=== PATIENT | female | born 1955 | race African-American/Black ===

== ENCOUNTER 2018-09-03 05:50 | Inpatient (IN) | payer SELFPAY ==
[2018-09-03] MEDS ORDERED: Morphine 4 MG/ML VIAL ONE (06:27)
[2018-09-03] MEDS ORDERED: cloNIDine 0.1 MG TAB ONE (06:27)
[2018-09-03] MEDS ORDERED: Ondansetron PF 4 MG/2 ML Vial ONE (06:27)
[2018-09-03 06:46] LABS: Hemoglobin 14.4 g/dL (12.0-16.0); Mean Corpuscular Hemoglobin 29.6 pg (27.0-31.0); Mean Corpuscular Volume 95.6 fL (78.0-98.0); Mean Platelet Volume 10.9 fL (7.4-10.4); Platelet Count 275 thou/uL (130-400); RBC Distribution Width 12.5 % (11.5-14.5); Red Blood Cell (RBC) Count 4.85 mill/uL (4.20-5.40); White Blood Cell (WBC) Count 14.3 thou/uL (4.8-10.8)
[2018-09-03 06:58] LABS: ALT (SGPT) 10 U/L (8-55); AST (SGOT) 19 U/L (5-34); Albumin 4.7 g/dL (3.4-4.8); Alkaline Phosphatase 103 U/L (40-150); Anion Gap 21 mmol/L (10-20); BUN (Urea Nitrogen) 28 mg/dL (9.8-20.1); Bilirubin, Total 0.3 mg/dL (0.2-1.2); Calc. Creatinine Clearance 0 mL/min (70-130); Calcium 10.1 mg/dL (7.8-10.44); Carbon Dioxide 20 mmol/L (23-31); Chloride 101 mmol/L (98-107); Estimated GFR-MDRD 33; Globulin 5.1 g/dL (2.4-3.5); Glucose 291 mg/dL (80-115); Lipase 42 U/L (8-78); Potassium 4.3 mmol/L (3.5-5.1); Protein, Total 9.8 g/dL (6.0-8.3); Sodium 138 mmol/L (136-145)
[2018-09-03 07:09] LABS: Band 3 % (5-11); Lymphocytes 13 % (21-51); MDiff Complete? YES; Monocytes 3 % (0-10); Neutrophil 81 % (42-75); RBC Morphology Normal
[2018-09-03] MEDS ORDERED: Aspirin 325 MG TAB ONE (07:22)
[2018-09-03 07:24] LABS: CKMB 5.6 ng/mL (0-6.6)
[2018-09-03] MEDS ORDERED: Nitroglycerin 0.4 MG TAB (25 Tab Bottle) ONE (09:13)
[2018-09-03] MEDS ORDERED: Metoprolol Tartrate 5 MG/5 ML VIAL ONE (09:18)
--- NOTE | 2018-09-03 09:39 | ULT ---
RIGHT UPPER QUADRANT ULTRASOUND: HISTORY: Right upper quadrant pain and mid epigastric pain. Nausea and vomiting. FINDINGS: The liver and gallbladder are normal. The pancreas is not well visualized due to overlying bowel gas . The right kidney measures 9 cm in length without definite focal mass or hydronephrosis. No free f luid is seen in the Love pouch. The common duct measures 5 mm in diameter. IMPRESSION: No evidence of cholelithiasis. POS: [facility]
--- NOTE | 2018-09-03 09:44 | RAD ---
PORTABLE CHEST ONE VIEW: 09/03/2018 6:23 a.m. HISTORY: Nausea and vomiting. High blood sugar. FINDINGS: The heart size is normal. The lungs are well expanded without focal areas of consolidation, pneumoth orax, or pleural effusions. IMPRESSION: No acute process. POS: [facility]
[2018-09-03] MEDS ORDERED: Nitroglycerin 50 MG/250 ML BOT 250 ML ONE (09:51)
[2018-09-03] MEDS ORDERED: Heparin 25,000 units/D5W 500 ML ONE (09:51)
[2018-09-03 10:04] LABS: Troponin I 0.963 ng/mL (< 0.028)
[2018-09-03] MEDS ORDERED: Nitroglycerin 50 MG/250 ML BOT 250 ML IVPB SCH (10:15)
--- NOTE | 2018-09-03 10:53 | CT ---
PRELIMINARY REPORT/[facility]/EMERGENTY AFTER-HOURS PROCEDURE CT Head Without Contrast EXAM DATE/TIME: 09/03/2018 6:45 AM CLINICAL HISTORY: 62 years old, female; Signs and symptoms; Dizziness; Patient HX: F 62 presents to ed with epigastirc abd pain, vomiting and HTN. PT states that she took her night BP medication but immediately vomited. Symptoms began at 20: 00 yesterday. Reports 3 episodes of vomiting and mild SOB, denies cp, fever, VILLAREAL or diarrhea. TECHNIQUE: Axial computed tomography images of the head/brain without contrast. COMPARISON: No relevant prior studies available. FINDINGS: Brain: There is no acute intracranial hemorrhage or mass effect. Mild diffuse volume loss is within t he range of normal for patient age. There are small vessel ischemic changes within the periventricula r and subcortical white matter, but the normal angela/white matter delineation is maintained. There is a chronic lacunar infarct within the right basal ganglia. Ventricles: Normal. No ventriculomegaly. Bones/joints: Normal. No acute fracture. Sinuses: Normal as visualized. No acute sinusitis. Mastoid air cells: Normal as visualized. No mastoid effusion. Soft tissues: Normal. IMPRESSION: No acute hemorrhage or edema. Thank you for allowing us to participate in the care of your patient. Dictated and Authenticated by: Lori Campbell MD 09/03/2018 7:38 AM Central Time ([place] & [place]) FINAL REPORT CT BRAIN WITHOUT CONTRAST: Date: 09/03/18 FINDINGS/IMPRESSION: I agree with the preliminary report given by Jose. POS: [facility]
[2018-09-03] MEDS ORDERED: Dextrose 50% Abboject 50 ML SYRINGE SLOW IVP PRN (11:12)
[2018-09-03] MEDS ORDERED: Dextrose 5% in Water 1,000 ML IV PRN (11:12)
[2018-09-03] MEDS ORDERED: Sodium Chloride 0.45% 1,000 ML IV SCH (11:15)
[2018-09-03] MEDS ORDERED: niCARdipine 40MG In NaCl 40 MG/200 ML BAG IVPB SCH (11:15)
[2018-09-03 11:28] VITALS: BMI 32.4
[2018-09-03] MEDS ORDERED: Heparin 10,000 UNITS/ 10 ML VIAL SLOW IVP SCH ×2 (12:15→12:45)
[2018-09-03] MEDS ORDERED: Heparin 25,000 units/D5W 500 ML IV SCH (12:15)
[2018-09-03] MEDS ORDERED: Heparin 25,000 units/D5W 500 ML IVPB SCH (12:45)
[2018-09-03 13:01] LABS: Troponin I 1.237 ng/mL (< 0.028)
--- NOTE | 2018-09-03 13:38 | CON ---
DATE OF CONSULTATION: HISTORY OF PRESENT ILLNESS: A 62-year-old female, who is 96 kilos, presented to the hospital with off and on left anterior chest pain since yesterday. Her saturations are 97% on room air, respirations 20, blood pressure was 120/80. She smokes one-half pack a day for years. Has a diagnosis of COPD. Mostly, she is able to walk a fair distance without getting markedly short of breath. She then proceeded to apparently have some vomiting. Came to the ER, where a troponin was elevated. EKG shows some lateral changes in the ICU, now on IV nitroglycerin drip. Cardiology to see her. Pulmonary is seeing her for ICU care. On most days, she says she can walk a mile without getting short of breath. PAST MEDICAL HISTORY: COPD, hypertension, diabetes. PAST SURGICAL HISTORY: Hysterectomy and ligation. HOME MEDICINES: Include: 1. Metformin 1000 twice a day. 2. Catapres 0.1. 3. Procardia XL 60. 4. Losartan 100. 5. Pepcid 20. 6. Coreg 6.25 twice a day. 7. Aspirin. ALLERGIES: NONE. 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 REVIEW OF SYSTEMS: Otherwise unremarkable. PHYSICAL EXAMINATION: GENERAL: She is in the ICU, awake, alert, and responsive. VITAL SIGNS: 2 L saturations are 94%, temperature 98, blood pressure was now elevated showed right was 219/148. She is started on nitro and a Cardene drip. CHEST: Reveals decreased breath sounds and wheezing. CARDIAC: Normal S1, S2. No gallops. ABDOMEN: Soft. No masses. LABORATORY DATA: Shows white count 14,000, H and H of 14 and 46, platelet count is normal, neutrophil 81. Glucose 238. Troponin 0.96. Glucose 291, creatinine 1.86. IMPRESSION: 1. Ssx-HV-bdcphuy elevation myocardial infarction. 2. Renal failure. 3. Diabetes. 4. Smoker. 5. Hypertension. PLAN: The patient is advised to refrain from smoking. Heparin, nicardipine, and insulin are initiated by Cardiology. Primary Care will follow while in the ICU. Consultation note, 70 minutes, 50% with direct patient care. Job ID: [id number]
[2018-09-03] MEDS ORDERED: Communication Order-Pharmacy FS SCH (13:45)
[2018-09-03] MEDS: Sodium Chloride 0.9% 1,000 ML IV SCH (14:43)
[2018-09-03 15:28] LABS: PTT Greater than 250.0 SEC (22.9-36.1)
[2018-09-03] MEDS: Insulin Regular 300 UNITS/3 ML VIAL SC PRN ×2 (15:49→21:32)
[2018-09-03] MEDS: Carvedilol 6.25 MG TAB PO SCH (15:49)
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
[2018-09-03] MEDS: niCARdipine HCl 25 MG in Sodium Chloride 0.9% 250 ML 240 ML IVPB SCH (17:49)
[2018-09-03 18:12] LABS: PTT 123.7 SEC (22.9-36.1)
[2018-09-03] MEDS ORDERED: Atorvastatin Calcium 40 MG TAB PO SCH (21:00)
[2018-09-04] MEDS: Acetaminophen 325 MG TAB PO PRN ×2 (02:32→20:50)
[2018-09-04 05:32] LABS: Anion Gap 11 mmol/L (10-20); BUN (Urea Nitrogen) 27 mg/dL (9.8-20.1); Calc. Creatinine Clearance 52 mL/min (70-130); Calcium 8.5 mg/dL (7.8-10.44); Carbon Dioxide 25 mmol/L (23-31); Cardiac Risk 2.9 (Less than 4.5); Chloride 104 mmol/L (98-107); Cholesterol 88 mg/dl (< 200 Desired); Estimated GFR-MDRD 43; Glucose 141 mg/dL (80-115); HDL Cholesterol 30 mg/dL (>60 Neg Risk); LDL Cholesterol, Calculated 39 mg/dL; Potassium 3.6 mmol/L (3.5-5.1); Sodium 136 mmol/L (136-145); Triglycerides 96 mg/dL (Less than 150)
[2018-09-04] MEDS: niCARdipine HCl 25 MG in Sodium Chloride 0.9% 250 ML 240 ML IVPB SCH ×4 (06:10→19:25)
[2018-09-04 08:36] LABS: Troponin I 1.115 ng/mL (< 0.028)
[2018-09-04] MEDS: Carvedilol 6.25 MG TAB PO SCH ×2 (08:43→19:32)
[2018-09-04] MEDS: Sodium Chloride 0.9% 1,000 ML IV SCH (08:45)
[2018-09-04] MEDS ORDERED: Losartan 25 MG TAB PO SCH (09:00)
--- NOTE | 2018-09-04 09:53 | PRG ---
DATE OF SERVICE: 09/04/2018 SUBJECTIVE: This morning, she is awake, alert, and responsive. She has been feeling better. Less pain, less shortness of breath. Echo showed an EF of about 35% to 40%. OBJECTIVE: VITAL SIGNS: Her vital signs are stable with oxygen saturation of 97%. Blood pressure 129/98, temperature 98, respirations 20, and pulse 80. CHEST: Decreased breath sounds. No wheezing. CARDIAC: Normal S1 and S2. No gallops. ABDOMEN: Soft. LABORATORY DATA: Creatinine 1.49. IMPRESSION: Xgv-ZZ-ftronmp elevation myocardial infarction, renal failure. PLAN: Continue to observe in the ICU. Pulmonary will follow while in the ICU. Job ID: [id number]
[2018-09-04] MEDS ORDERED: Potassium Chloride 20 MEQ TAB PO SCH (10:30)
[2018-09-04] MEDS ORDERED: Furosemide 20 MG/2 ML VIAL SLOW IVP SCH (10:30)
[2018-09-04] MEDS: Insulin Regular 300 UNITS/3 ML VIAL SC PRN (10:56)
--- NOTE | 2018-09-04 11:17 | HP ---
HISTORY OF PRESENT ILLNESS: Ms. Rangel is a 62-year-old black woman. She came to this facility earlier today with complaint of nausea and vomiting, which started around 2100 hours last night and she has been unable to take her medication. She was evaluated in the ER. She was noticed to have elevated troponin and also to have elevated blood pressure. She is being admitted for evaluation and management. She is known to have a history of hypertension and diabetes mellitus. She denies previous history of heart disease. She denies kidney disease. She does have a history of COPD. No history of cerebrovascular accident. PAST SURGICAL HISTORY: Remarkable for tubal ligation and later, hysterectomy. ALLERGIES: SHE CLAIMS TO HAVE ALLERGY TO CODEINE. SOCIAL HISTORY: She is an active smoker. She denies EtOH abuse. She denies drug abuse. FAMILY HISTORY: Reviewed and is noncontributory. MEDICATIONS: Prior to admission, she was on; 1. Aspirin 81 mg daily. 2. Carvedilol. 3. Clonidine. 4. Losartan. 5. Lovastatin. 6. Metformin. 7. Nifedipine. 8. Toujeo. REVIEW OF SYSTEMS: CONSTITUTIONAL: She denies any fever. Admit to generalized weakness. HEENT: No headache. No occular pain. No sore throat. . No earache. No epistaxis. NECK: No neck pain. No neck stiffness. CARDIOVASCULAR: No shortness of breath. She claims that she had some chest pain earlier while in the ER. GENITOURINARY: No dysuria. No hematuria. GASTROINTESTINAL: Admit to nausea, vomiting. She denies diarrhea. Denies abdominal pain. ENDOCRINOLOGY: No heat or cold intolerance. She admit to polyuria and polydipsia. PULMONOLOGY: Denies coughing. MUSCULOSKELETAL: No arthralgia. No muscle pain. HEMATOLOGY: No abnormal bleeding. No ecchymosis. LYMPHATIC: No peripheral lymphadenopathy. SKIN: No rash. No itching. ALLERGY: No hay fever. NEUROLOGICAL: No seizure. PSYCHIATRIC: She denies anxiety. Denies depression. PHYSICAL EXAMINATION: GENERAL: At the current time, she is alert, oriented, in no acute distress. VITAL SIGNS: Her latest vital signs show a temperature of 97.6, pulse rate 93, respiratory rate 22, and blood pressure 192/137. HEENT: Her head is normocephalic and atraumatic. Both of her pupils are equal and reactive. Ears and nose are normal. Oral mucosa is moist. Pharyngeal area is clear. NECK: Supple. There is no distention of the jugular vein. No lymphadenopathy felt. Thyroid not palpable. There is no carotid bruit. CHEST: Symmetrical, irregular. S1 and S2. LUNGS: Clear. ABDOMEN: Soft. Bowel sounds heard. Could not appreciate any organomegaly. LYMPHS: Show no edema. NEUROLOGICAL: She moves all extremities. LABORATORY DATA: CBC show a WBC of 14.3, hemoglobin of 14.4, hematocrit of 46.4, MCV of 95.6, and platelet 275. Chemistry and lytes done today show a sodium of 138, potassium 4.3, chloride 101, CO2 of 20, BUN 28, creatinine 1.87, glucose 291, and calcium 10.1. Total bilirubin 0.3, AST 19, ALT 10, and alkaline phosphatase 103. Troponins were noticed to be elevated at 0.394, repeat troponins is 0.963. Total protein is 9.8. Albumin 4.7, globulin 5.1. Lipase 42. IMAGING DATA: Right upper quadrant ultrasound was reported to show no evidence of cholelithiasis. Chest x-ray was reported to show no acute process. Head CT is in progress. ASSESSMENT AND PLAN: This is a 62-year-old black woman with history of hypertension, diabetes mellitus, and chronic obstructive pulmonary disease, who came in with complaint of nausea and vomiting, noticed to have elevated blood pressure, value is consistent with hypertensive emergency. We will start her on the Cardene drip. She will be admitted to ICU. Her serum creatinine was noticed to be elevated raising the possibility of acute kidney injury in the setting of dehydration associated with nausea and vomiting. Her blood sugar is also elevated. She will be on the sliding scale until we start her diabetic medication. She will be admitted to ICU as we mentioned earlier. Further evaluation and management will depend on her course of the hospitalization and her response to medication. Her troponin has increased significantly, consistent with non-ST myocardial infarction. EKG shows nonspecific abnormalities. Cardiology consult was called. Also, she has history of chronic obstructive pulmonary disease. Job ID: [id number]
--- NOTE | 2018-09-04 11:27 | PDOC.PN ---
- Subjective Encounter Start Date: 09/04/18 Encounter Start Time: 11:00 -: No complaint now. -: Some chest pain earlier. - Objective Vital Signs & Weight: Vital Signs (12 hours) Temp BP Pulse Ox 09/04/18 08:43 129/98 H 09/04/18 08:00 98.7 F 09/04/18 06:42 94 L 09/04/18 01:11 97 Weight Weight 189 lb 2.506 oz Most Recent Monitor Data Heart Rate from ECG 102 NIBP 129/98 NIBP BP-Mean 108 Respiration from ECG 21 SpO2 97 I&O: 09/03/18 09/04/18 09/05/18 06:59 06:59 06:59 Intake Total 2124.2 Output Total 1060 120 Balance 1064.2 -120 Result Diagrams: 09/03/18 06:22 09/04/18 05:01 Additional Labs: Accuchecks 09/04/18 09/03/18 09/03/18 10:52 21:26 15:46 POC Glucose 172 H 244 H 266 H Phys Exam - Physical Examination Neck: no JVD Respiratory: clear to auscultation bilateral Cardiovascular: RRR Gastrointestinal: soft Musculoskeletal: no edema Neurological: moves all 4 limbs Psychiatric: A&O x 3 Dx/Plan (1) NSTEMI (non-ST elevated myocardial infarction) Code(s): I21.4 - NON-ST ELEVATION (NSTEMI) MYOCARDIAL INFARCTION Status: Acute Plan: Per cardiology.. For possible cardiac cath later. (2) HTN (hypertension) Code(s): I10 - ESSENTIAL (PRIMARY) HYPERTENSION Status: Acute (3) Diabetes Code(s): E11.9 - TYPE 2 DIABETES MELLITUS WITHOUT COMPLICATIONS Status: Acute Plan: On sliding scale.. (4) Hypertensive emergency Code(s): I16.1 - HYPERTENSIVE EMERGENCY Status: Acute Comment: controlled (5) Hypertensive emergency Code(s): I16.1 - HYPERTENSIVE EMERGENCY Status: Acute (6) Renal insufficiency Status: Acute (7) Renal insufficiency Status: Acute Comment: Consult nephrology.. - Plan * .
[2018-09-04] MEDS: Atorvastatin Calcium 20 MG TAB PO SCH (20:50)
--- NOTE | 2018-09-04 20:51 | CON ---
DATE OF CONSULTATION: NEPHROLOGY CONSULTATION REASON FOR CONSULTATION: Elevated creatinine. HISTORY OF PRESENT ILLNESS: This is a 62-year-old female, who was admitted for uncontrolled hypertension, was noted to have creatinine of 1.4. The patient denies no headache, numbness, tingling, or weakness. The patient was also noted to have better blood pressure. The patient's creatinine was 1.8 and has improved, her baseline was 1.0 in 2015. PAST MEDICAL HISTORY: Significant for hypertension, history of obesity, history of COPD, tubal ligation, and history of diabetes mellitus. SOCIAL HISTORY: No alcohol or drug use. FAMILY HISTORY: Negative for ESRD. ALLERGIES: REVIEWED. MEDICATIONS: Home medication list reviewed. REVIEW OF SYSTEMS: A 15-point review of system was performed and was negative except for positives noted above. NECK: No swelling or lumps. NOSE: No epistaxis or discharge. EYES: No diplopia or pain. MUSCULOSKELETAL: No joint pain. NEUROPSYCHIATRIC SYSTEMS: No suicidal ideation. No ideation. SKIN: Denies any rash or ulcer. CONSTITUTIONAL: No fever or chills. PHYSICAL EXAMINATION: CONSTITUTIONAL: The patient is awake and alert. VITAL SIGNS: Afebrile, pulse 92, breathing is 16, and blood pressure 146/97. GENERAL APPEARANCE AND MENTAL STATUS: Fair. HEAD/NECK: Normocephalic. Atraumatic. EYES: EOMI. No deformity. EARS: Clear. No ulcers. NOSE: Intact. No lesions. MOUTH: Clear. No discharge. THROAT: Clear. No exudate. LUNGS: Clear. No crackles. CARDIAC: S1, S2. No rub. ABDOMEN: Benign. Bowel sounds positive. GENITALIA/RECTUM: Wilkinson absent. BACK/EXTREMITIES: Edema 0+. NEUROLOGICAL: Alert and motor intact. LABORATORY DATA: Labs show creatinine 1.4. ASSESSMENT AND PLAN: 1. Chronic kidney disease, most likely due to hypertensive nephropathy. Agree with cardiac catheterization and continue gentle IV hydration. 2. Medications based on glomerular filtration rate are appropriate. 3. Anemia, stable. Job ID: [id number]
--- NOTE | 2018-09-04 21:40 | ULT ---
RENAL ULTRASOUND: HISTORY: Chronic renal insufficiency. TECHNIQUE: Real-time imaging of the right and left kidneys was performed. FINDINGS: The right kidney measures 9.5 cm in size. The left kidney is 9.8 cm. There are some hypodensities i nvolving the left kidney, one measuring 6 mm, the larger measuring 2.3 cm in size, and a third measu ring 1.8 cm. There is also a questionable nonobstructing upper pole calculus. The bladder region appears unremarkable. IMPRESSION: Left renal cysts and a questionable nonobstructing stone. POS: [facility]
[2018-09-04] MEDS ORDERED: diphenhydrAMINE 25 MG CAP PO SCH (22:30)
[2018-09-05] MEDS: niCARdipine HCl 25 MG in Sodium Chloride 0.9% 250 ML 240 ML IVPB SCH ×2 (01:46→07:00)
[2018-09-05] MEDS: Carvedilol 6.25 MG TAB PO SCH (05:13)
[2018-09-05] MEDS: Acetaminophen 325 MG TAB PO PRN (05:14)
[2018-09-05] MEDS ORDERED: Sodium Chloride 0.9% 1,000 ML IV SCH ×2 (06:00→11:13)
[2018-09-05] MEDS ORDERED: Protamine Sulfate 50 MG/5 ML VIAL ONE (08:24)
[2018-09-05] MEDS ORDERED: Heparin 10,000 UNITS/1 ML VIAL ONE (08:24)
[2018-09-05] MEDS ORDERED: Lidocaine 1% (PF) 30 ML VIAL ONE (08:24)
[2018-09-05] MEDS ORDERED: Fentanyl 100 MCG/2 ML VIAL ONE (09:43)
[2018-09-05] MEDS ORDERED: Midazolam HCl 2 mg/2 ml Vial ONE (09:43)
--- NOTE | 2018-09-05 09:45 | PRG ---
DATE OF SERVICE: 09/05/2018 SERVICE: Pulmonary Medicine. INTERVAL HISTORY: The patient is doing fine from a respiratory standpoint. Breathing comfortably. There has been no interval change to her condition. Denies any current fevers, chills, nausea, vomiting, or chest discomfort. She is not having any abdominal discomfort or epigastric discomfort. PHYSICAL EXAMINATION: VITAL SIGNS: Afebrile, pulse 95, blood pressure 128/111, respirations 13, and saturation 96% on room air. GENERAL: The patient is awake and alert, in no apparent distress. LUNGS: Decent air entry. There is a slightly prolonged expiratory phase, but I do not appreciate any adventitious sounds. HEART: Normal rate, regular. ABDOMEN: Soft, nontender, and nondistended. Bowel sounds are positive. MUSCULOSKELETAL: No cyanosis or clubbing. No pitting in bilateral lower extremities. NEUROLOGIC: Grossly nonfocal. LABORATORY DATA: Basic metabolic profile is unremarkable. Creatinine is downtrending to 1.49, which is close to her baseline. Troponin is uptrending to 1.2. Beta-hydroxybutyric acid was previously 0.93. IMAGING: Ultrasound does not demonstrate any significant obstructive changes. Echocardiogram demonstrates 35% ejection fraction and dyskinetic motion of the apical wall. ASSESSMENT: 1. Gdn-IK-zyuskixlj myocardial infarction. 2. Type 2 diabetes mellitus. 3. Hypertensive emergency, still requiring two drips. DISCUSSION AND PLAN: The patient is going down for cardiac catheterization presently. She will remain in the ICU until cleared for transition to the floor by Cardiology. We will work on getting her off her antihypertensive medications by drip and convert her over to p.o. medications. Pulmonary/Critical Care will continue to follow so long as the patient remains in this location. When she arrives on the floor, she will have no further requirements for inpatient Pulmonary/Critical Care opinion, and we will sign off. Job ID: [id number]
[2018-09-05] MEDS ORDERED: Clopidogrel Bisulfate 300 MG TAB ONE (10:37)
[2018-09-05] MEDS ORDERED: Bivalirudin 250 MG VIAL ONE (10:37)
[2018-09-05] MEDS ORDERED: Nitroglycerin 0.4 MG TAB (25 Tab Bottle) SL PRN (11:12)
[2018-09-05] MEDS ORDERED: Carvedilol 6.25 MG TAB PO SCH (11:15)
[2018-09-05] MEDS ORDERED: niCARdipine HCl 25 MG in Sodium Chloride 0.9% 250 ML 240 ML IVPB SCH (11:32)
[2018-09-05] MEDS ORDERED: Nitroglycerin 50 MG/250 ML BOT 250 ML IVPB SCH (11:38)
[2018-09-05] MEDS ORDERED: Morphine 2 MG/ML SYRINGE SLOW IVP PRN (11:51)
[2018-09-05] MEDS ORDERED: hydrALAZINE 25 MG TAB PO SCH (12:15)
--- NOTE | 2018-09-05 12:41 | PRG ---
DATE OF SERVICE: 09/05/2018 SUBJECTIVE: This 62-year-old female being seen for acute kidney injury. The patient denies any nausea, vomiting, or chest pain. OBJECTIVE: CONSTITUTIONAL: The patient is awake and alert. VITAL SIGNS: Afebrile, pulse 97, breathing 16, and blood pressure 166/103. GENERAL APPEARANCE AND MENTAL STATUS: Fair. HEAD/NECK: Normocephalic. Atraumatic. EYES: EOMI. No deformity. EARS: Clear. No ulcers. NOSE: Intact. No lesions. MOUTH: Clear. No discharge. THROAT: Clear. No exudate. LUNGS: Clear. No crackles. CARDIAC: S1, S2. No rub. ABDOMEN: Benign. Bowel sounds positive. GENITALIA/RECTUM: Wilkinson absent. BACK/EXTREMITIES: Edema 0+. NEUROLOGICAL: Alert and motor intact. LABORATORY DATA: None today. ASSESSMENT: 1. Stage 3 chronic kidney disease. Check hemoglobin. 2. Hypertension, stable. 3. Anemia, stable. 4. Coronary artery disease. Management per primary team. Job ID: [id number]
[2018-09-05 12:54] LABS: Anion Gap 15 mmol/L (10-20); BUN (Urea Nitrogen) 16 mg/dL (9.8-20.1); Calc. Creatinine Clearance 61 mL/min (70-130); Calcium 8.4 mg/dL (7.8-10.44); Carbon Dioxide 18 mmol/L (23-31); Chloride 107 mmol/L (98-107); Estimated GFR-MDRD 51; Glucose 158 mg/dL (80-115); Potassium 3.6 mmol/L (3.5-5.1); Sodium 136 mmol/L (136-145)
[2018-09-05] MEDS ORDERED: Iopamidol 370 76% 50 ML VIAL FS ONE (14:31)
[2018-09-05] MEDS ORDERED: Iopamidol 370 76% 100 ML VIAL ONE (14:31)
--- NOTE | 2018-09-05 15:47 | CCL ---
CARDIAC CATHETERIZATION REPORT: Date: 09/05/18 PROCEDURE: Left heart catheterization, selective arteriography, left ventriculography, stent placement in the fi rst diagonal branch and in the mid LAD. INDICATION: Non-STEMI. DESCRIPTION OF PROCEDURE: The patient was brought to the cardiac laborer demolition and the right groin was prepped and draped in the usu al fashion. 1% lidocaine was infiltrated. A 6 Qatari sheath was placed into the right femoral artery. The patient was on intravenous heparin. A 6 Qatari Waldo left-4 followed by a 6 Qatari Waldo rig ht-4 was used for coronary arteriography. A 6 Qatari angulated pigtail was inserted and pressures wer e obtained. Left ventriculogram was performed using 30 mL of contrast at 12 mL/s in a TAVERA 30 degree p rojection. Pressures were obtained and the pigtail was removed. A 6 Qatari left-4 guide catheter was inserted. Floppy Choice wire was advanced into the branch of the diagonal. Synergy 2.5 x 12 mm stent was positioned and deployed with excellent result. Intracoronary nitroglycerin 200 mcg was given twice. The floppy Choice wire was removed to place a more acute angle and this was directed into the LAD. Sy nergy 3.0 x 16 mm stent was then positioned and deployed. The proximal portion of this stent was pos tdilated with Emerge NC 4.0 x 8 mm balloon. The balloon and wire were removed. Final result was excel lent. The sheath was sutured in place. The patient was transferred back to the CCU. RESULTS: PRESSURES: Aorta 158/92, mean of 121 Left Ventricle 142/39 CORONARY ARTERIOGRAPHY: 1. The left main had a 20% stenosis. 2. The LAD had a 70% mid stenosis and an 80% stenosis in a branch of the first diagonal. 3. The circumflex was normal. 4. The right coronary artery had a 20% mid stenosis and a 50% right posterior descending artery sten osis. LEFT VENTRICULOGRAM: There was moderate anterior and apical hypokinesis with ejection fraction of 40-45%. INTERVENTION RESULTS: The branch of the first diagonal was reduced from 80% to 0%. The mid LAD was reduced from 70% to 0%. IMPRESSION: 1. Two vessel coronary artery disease (LAD and RCA). 2. Mild left ventricular dysfunction. 3. Successful drug-eluting stent placement in the first diagonal and in the mid LAD.
[2018-09-05] MEDS: Insulin Regular 300 UNITS/3 ML VIAL SC PRN (16:08)
[2018-09-05] MEDS: Carvedilol 25 MG TAB PO SCH (16:16)
[2018-09-05] MEDS: Sodium Chloride 0.9% 1,000 ML IV SCH (16:17)
[2018-09-05] MEDS: Atorvastatin Calcium 20 MG TAB PO SCH (21:27)
[2018-09-05] MEDS: hydrALAZINE 25 MG TAB PO SCH (21:27)
[2018-09-06 04:46] LABS: #Basophils 0.1 thou/uL (0.0-0.2); #Eosinphils 0.1 thou/uL (0.0-0.7); #Lymphocytes 2.8 thou/uL (1.20-3.40); #Monocytes 1.2 thou/uL (0.11-0.59); %Basophils 0.4 % (0.0-1.0); %Eosinophils 0.6 % (0.0-10.0); %Lymphocytes 19.7 % (21.0-51.0); %Monocytes 8.5 % (0.0-10.0); %Neutrophils 70.9 % (42.0-75.0); Hemoglobin 12.5 g/dL (12.0-16.0); Mean Corpuscular HGB CONC 32.8 g/dL (32.0-36.0); Mean Corpuscular Hemoglobin 31.6 pg (27.0-31.0); Mean Corpuscular Volume 96.4 fL (78.0-98.0); Mean Platelet Volume 10.3 fL (7.4-10.4); Platelet Count 221 thou/uL (130-400); RBC Distribution Width 12.5 % (11.5-14.5); Red Blood Cell (RBC) Count 3.94 mill/uL (4.20-5.40); White Blood Cell (WBC) Count 14.2 thou/uL (4.8-10.8)
[2018-09-06 05:07] LABS: ALT (SGPT) 10 U/L (8-55); AST (SGOT) 15 U/L (5-34); Albumin 3.7 g/dL (3.4-4.8); Alkaline Phosphatase 66 U/L (40-150); Anion Gap 13 mmol/L (10-20); BUN (Urea Nitrogen) 12 mg/dL (9.8-20.1); Bilirubin, Total 0.3 mg/dL (0.2-1.2); Calc. Creatinine Clearance 62 mL/min (70-130); Calcium 8.9 mg/dL (7.8-10.44); Carbon Dioxide 21 mmol/L (23-31); Chloride 107 mmol/L (98-107); Estimated GFR-MDRD 52; Glucose 122 mg/dL (80-115); Potassium 3.6 mmol/L (3.5-5.1); Protein, Total 7.7 g/dL (6.0-8.3); Sodium 137 mmol/L (136-145)
[2018-09-06] MEDS: Carvedilol 25 MG TAB PO SCH ×2 (07:42→16:21)
[2018-09-06] MEDS: Clopidogrel Bisulfate 75 MG TAB PO SCH (09:07)
[2018-09-06] MEDS: hydrALAZINE 25 MG TAB PO SCH ×2 (09:07→20:39)
[2018-09-06] MEDS: Insulin Regular 300 UNITS/3 ML VIAL SC PRN (11:33)
--- NOTE | 2018-09-06 11:39 | PRG ---
DATE OF SERVICE: 09/06/2018 SUBJECTIVE: A 62-year-old female is being seen for acute kidney injury. The patient denies any nausea, vomiting, or chest pain. OBJECTIVE: VITAL SIGNS: Afebrile. Pulse 88, breathing 16, and blood pressure 132/78. CONSTITUTIONAL: Awake, alert, in no acute distress. GENERAL APPEARANCE AND MENTAL STATUS: Fair. HEAD/NECK: Normocephalic. Atraumatic. EYES: EOMI. No deformity. EARS: Clear. No ulcers. NOSE: Intact. No lesions. MOUTH: Clear. No discharge. THROAT: Clear. No exudate. LUNGS: Clear. No crackles. CARDIAC: S1, S2. No rub. ABDOMEN: Benign. Bowel sounds positive. GENITALIA/RECTUM: Wilkinson absent. BACK/EXTREMITIES: Edema 0+. NEUROLOGICAL: Alert and motor intact. LABORATORY DATA: Labs show hemoglobin 12.5. Creatinine 1.5. ASSESSMENT AND PLAN: 1. Chronic kidney disease stage 3, stable. 2. Hypertension and anemia, stable. 3. Metabolic acidosis, stable. 4. No indication for dialysis. We will follow. Job ID: [id number]
[2018-09-06] MEDS: Sodium Chloride 0.9% 1,000 ML IV SCH (14:43)
--- NOTE | 2018-09-06 15:54 | PRG ---
DATE OF SERVICE: 09/06/2018 SUBJECTIVE: Court Rangel has no complaints. OBJECTIVE: VITAL SIGNS: She is afebrile, heart rate is 96, respiratory rate is 19, oximetry is 99 on room air, and blood pressure is 140/92. LUNGS: Clear. HEART: Regular rhythm. ABDOMEN: Soft and nontender. LABORATORY DATA: White count is 14.2, hemoglobin 12.5, and platelets 221. Sodium 137; potassium 3.6; chloride 107; bicarb 21, improved from 18; and creatinine is 1.25, which is essentially unchanged. Glucoses have been less than 183. IMPRESSION: Status post cardiac catheterization with placement of a stent in the 1st diagonal branch and the mid LAD for non-ST elevation myocardial infarction and chest pain. PLAN: She appears to be clinically stable. She is stable to move out of the critical care unit if Cardiology agrees. Job ID: [id number]
--- NOTE | 2018-09-06 16:55 | PDOC.PN ---
- Subjective Encounter Start Date: 09/05/18 Encounter Start Time: 11:30 -: old records requested/rev Pt seen and examined, chart reviewed in its entirety. This is my first visit with this patient - Objective MAR Reviewed: Yes Vital Signs & Weight: Vital Signs (12 hours) Temp Pulse Pulse Pulse Resp BP BP 09/06/18 16:18 98.1 F 98 16 09/06/18 14:20 09/06/18 14:15 98.2 F 96 19 09/06/18 12:00 98.3 F 09/06/18 09:44 92 94 119/75 09/06/18 09:07 88 132/78 09/06/18 08:00 98.4 F BP BP Pulse Ox Pulse Ox Pulse Ox 09/06/18 16:18 127/99 H 97 09/06/18 14:20 99 09/06/18 14:15 140/92 H 99 09/06/18 12:00 09/06/18 09:44 103/79 94 L 96 09/06/18 09:07 09/06/18 08:00 97 Weight Weight 189 lb 2.506 oz Most Recent Monitor Data Heart Rate from ECG 100 NIBP 117/85 NIBP BP-Mean 95 Respiration from ECG 19 SpO2 92 I&O: 09/05/18 09/06/18 09/07/18 06:59 06:59 06:59 Intake Total 3010.6 2782 480 Output Total 3240 2815 650 Balance -229.4 -33 -170 Result Diagrams: 09/06/18 04:36 09/07/18 05:03 Additional Labs: Accuchecks 09/06/18 09/05/18 11:27 21:10 POC Glucose 183 H 144 H Radiology Reviewed by me: Yes EKG Reviewed by me: Yes Dx/Plan (1) Diabetes Code(s): E11.9 - TYPE 2 DIABETES MELLITUS WITHOUT COMPLICATIONS Status: Acute (2) HTN (hypertension) Code(s): I10 - ESSENTIAL (PRIMARY) HYPERTENSION Status: Acute (3) Hypertensive emergency Code(s): I16.1 - HYPERTENSIVE EMERGENCY Status: Acute Comment: controlled (4) NSTEMI (non-ST elevated myocardial infarction) Code(s): I21.4 - NON-ST ELEVATION (NSTEMI) MYOCARDIAL INFARCTION Status: Acute (5) Renal insufficiency Status: Acute (6) Chest pain Code(s): R07.9 - CHEST PAIN, UNSPECIFIED Status: Acute - Plan * .
--- NOTE | 2018-09-06 16:56 | PDOC.PN ---
- Subjective Encounter Start Date: 09/06/18 Encounter Start Time: 11:40 follow up for htn emergency, HTN, elevated troponin, DM2 No F/C, no n/V/d/C, no CP or sOB all systems reviewed and neg x as per HP - Objective MAR Reviewed: Yes Vital Signs & Weight: Vital Signs (12 hours) Temp Pulse Pulse Pulse Resp BP BP 09/06/18 16:18 98.1 F 98 16 09/06/18 14:20 09/06/18 14:15 98.2 F 96 19 09/06/18 12:00 98.3 F 09/06/18 09:44 92 94 119/75 09/06/18 09:07 88 132/78 09/06/18 08:00 98.4 F BP BP Pulse Ox Pulse Ox Pulse Ox 09/06/18 16:18 127/99 H 97 09/06/18 14:20 99 09/06/18 14:15 140/92 H 99 09/06/18 12:00 09/06/18 09:44 103/79 94 L 96 09/06/18 09:07 09/06/18 08:00 97 Weight Weight 189 lb 2.506 oz Most Recent Monitor Data Heart Rate from ECG 100 NIBP 117/85 NIBP BP-Mean 95 Respiration from ECG 19 SpO2 92 I&O: 09/05/18 09/06/18 09/07/18 06:59 06:59 06:59 Intake Total 3010.6 2782 480 Output Total 3240 2815 650 Balance -229.4 -33 -170 Result Diagrams: 09/06/18 04:36 09/06/18 04:36 Additional Labs: Accuchecks 09/06/18 09/05/18 11:27 21:10 POC Glucose 183 H 144 H Dx/Plan (1) Diabetes Code(s): E11.9 - TYPE 2 DIABETES MELLITUS WITHOUT COMPLICATIONS Status: Acute (2) HTN (hypertension) Code(s): I10 - ESSENTIAL (PRIMARY) HYPERTENSION Status: Acute (3) Hypertensive emergency Code(s): I16.1 - HYPERTENSIVE EMERGENCY Status: Acute Comment: controlled (4) NSTEMI (non-ST elevated myocardial infarction) Code(s): I21.4 - NON-ST ELEVATION (NSTEMI) MYOCARDIAL INFARCTION Status: Acute (5) Renal insufficiency Status: Acute (6) Chest pain Code(s): R07.9 - CHEST PAIN, UNSPECIFIED Status: Acute - Plan * .
[2018-09-06] MEDS: Lisinopril 2.5 MG TAB PO SCH (20:39)
[2018-09-06] MEDS: Atorvastatin Calcium 20 MG TAB PO SCH (20:39)
[2018-09-06] MEDS ORDERED: Ondansetron ODT 4 MG TAB PO PRN (20:57)
[2018-09-06] MEDS ORDERED: Bisacodyl 5 MG TAB PO PRN (20:57)
[2018-09-06] MEDS ORDERED: Guaifenesin DM 100-10/5 ML UDCUP PO PRN (20:57)
[2018-09-06] MEDS ORDERED: Bisacodyl 10 MG SUPP PR PRN (20:57)
[2018-09-06] MEDS ORDERED: Ondansetron PF 4 MG/2 ML Vial IVP PRN (20:57)
[2018-09-06] MEDS ORDERED: Senokot S 8.6-50 MG TAB PO PRN (20:57)
[2018-09-06] MEDS ORDERED: cloNIDine 0.1 MG TAB PO PRN (20:58)
[2018-09-06] MEDS ORDERED: Carvedilol 6.25 MG TAB PO SCH (21:00)
[2018-09-06] MEDS ORDERED: Lisinopril 5 MG TAB PO SCH (21:00)
[2018-09-06] MEDS: Famotidine 20 MG TAB PO SCH (21:20)
[2018-09-07 05:45] LABS: Anion Gap 15 mmol/L (10-20); BUN (Urea Nitrogen) 14 mg/dL (9.8-20.1); Calc. Creatinine Clearance 58 mL/min (70-130); Calcium 9.2 mg/dL (7.8-10.44); Carbon Dioxide 19 mmol/L (23-31); Chloride 109 mmol/L (98-107); Estimated GFR-MDRD 48; Glucose 132 mg/dL (80-115); Potassium 3.8 mmol/L (3.5-5.1); Sodium 139 mmol/L (136-145)
[2018-09-07] MEDS: Losartan 25 MG TAB PO SCH (08:17)
[2018-09-07] MEDS: Carvedilol 25 MG TAB PO SCH ×2 (08:17→16:37)
[2018-09-07] MEDS: Lisinopril 2.5 MG TAB PO SCH ×2 (08:18→20:36)
[2018-09-07] MEDS: Clopidogrel Bisulfate 75 MG TAB PO SCH (08:18)
[2018-09-07] MEDS: hydrALAZINE 25 MG TAB PO SCH ×2 (08:18→20:36)
[2018-09-07] MEDS: NIFEdipine XL 60 MG TAB PO SCH (08:18)
[2018-09-07] MEDS: Sodium Chloride 0.9% 1,000 ML IV SCH (09:53)
--- NOTE | 2018-09-07 10:44 | PRG ---
DATE OF SERVICE: 09/07/2018 SUBJECTIVE: A 62-year-old female, being seen for end-stage renal disease. The patient denied any nausea, vomiting, or chest pain. OBJECTIVE: CONSTITUTIONAL: The patient awake, alert, in no acute distress. VITAL SIGNS: Afebrile, pulse 101, breathing 16, blood pressure 133/96. GENERAL APPEARANCE AND MENTAL STATUS: Fair. HEAD/NECK: Normocephalic. Atraumatic. EYES: EOMI. No deformity. EARS: Clear. No ulcers. NOSE: Intact. No lesions. MOUTH: Clear. No discharge. THROAT: Clear. No exudate. LUNGS: Clear. No crackles. CARDIAC: S1, S2. No rub. ABDOMEN: Benign. Bowel sounds positive. GENITALIA/RECTUM: Wilkinson absent. BACK/EXTREMITIES: Edema 0+. NEUROLOGICAL: Alert and motor intact. SKIN: LYMPHATICS: LABORATORY DATA: Labs show hemoglobin 12.5. Creatinine 1.3. ASSESSMENT AND PLAN: 1. Chronic kidney disease stage 3, stable. 2. Hypertension, stable. 3. Anemia, stable. 4. Metabolic acidosis, stable. 5. No indication for dialysis. I will sign off on this patient. Job ID: [id number]
--- NOTE | 2018-09-07 12:10 | CT ---
CT ABDOMEN WITHOUT CONTRAST CT PELVIS WITHOUT CONTRAST: Date: 09/07/18 HISTORY: Abdominal pain. Past medical history of renal cysts and renal calculi. COMPARISON: None. FINDINGS: CT ABDOMEN: Small amount of pericardial fluid. Lung bases are clear. Visualized aorta has a normal caliber. No pe riaortic fat stranding. Hyperdensity within the lumen of the gallbladder may represent a combination of sludge and stones. Ga llbladder ultrasound if clinically indicated. Limited evaluation of the solid organs due to lack of IV contrast administration. Grossly, no solid o rgan abnormality. Nonspecific mildly enlarged gastrohepatic lymph node measuring 1.2 x 0.5 cm. No periportal or retrocr ural lymphadenopathy. No mesenteric mass, lymphadenopathy, free air, or free fluid. There are a few scattered nonspecific m esenteric lymph nodes. Limited evaluation of the alimentary canal by the lack of oral contrast. No evidence of bowel obstruc tion. Ileocecal junction is normal. Normal caliber appendix. Scattered fecal material in a nondistend ed, nondilated colon. Occasional diverticulum. No diverticulitis. Bilaterally, no evidence of obstructive uropathy. There are intrinsic hyperdense nodules in the right kidney measuring approximately 1.0 x 0.8 cm and 0 .8 x 0.7 cm. Hyperdense nodules are presumed to be due to a hemorrhagic or complex cystic lesion. The re is a hypodensity in the lower pole of the left kidney measuring 2.1 x 2.1 cm with an attenuation coefficient of 21 Hounsfield units. There is a second hypodensity in the mid left renal cortex measur ing 1.2 x 1.0 cm with an attenuation coefficient of 15 Hounsfield units. There is exophytic isodensit y measuring 1.[address] PELVIS: No mass, lymphadenopathy, free air, or free fluid. Unremarkable urinary bladder. Hysterectomy changes are noted. No lytic or blastic lesions in the osseous structures. Degenerative changes of lumbar spine noted. IMPRESSION: Mixed attenuation lesions in the kidneys, which are presumed to be due to complex and hemorrhagic cys ts. Better interrogation with abdomen MRI or a renal mass protocol CT is recommended. There is an iso dense lesion in the upper pole of the left kidney which can be better characterized with additional i maging as described above. Bilaterally, no evidence of obstructive uropathy. POS: C
--- NOTE | 2018-09-07 19:12 | PRG ---
DATE OF SERVICE: 09/07/2018 SERVICE: Pulmonary Medicine. INTERVAL HISTORY: The patient is breathing comfortably. She has no complaints of chest pain, fevers, chills, or shortness of breath. She has a little bit of a cough, but it is only bring up a touch of white phlegm. This significantly improved compared to prior. Otherwise, there has been no interval change to her condition. She is hoping to go home today. PHYSICAL EXAMINATION: VITAL SIGNS: Afebrile, pulse 86, blood pressure 134/80, respirations 15, and saturation 98% on room air. GENERAL: The patient is awake and alert, in no apparent distress. LUNGS: Excellent air entry. There is no prolonged expiratory phase, wheezing, rhonchi, or crackles present. HEART: Normal rate and regular. ABDOMEN: Soft, nontender, and nondistended. Bowel sounds are positive. MUSCULOSKELETAL: No cyanosis or clubbing. No pitting in the bilateral lower extremities. NEUROLOGIC: Grossly nonfocal. LABORATORY DATA: Creatinine 1.35. Basic metabolic profile is otherwise unremarkable. IMAGING DATA: CT of the abdomen and pelvis demonstrates no acute intraabdominal pathology. There are some cystic lesions in the kidneys, presumed to be complex hemorrhagic cysts. Additional investigation may be warranted. Of note, there are no significant effusions, consolidation in the lung windows. ASSESSMENT: 1. Zdk-FC-hyilyvdop myocardial infarction. 2. Type 2 diabetes mellitus. 3. Hypertensive emergency, resolving. DISCUSSION AND PLAN: The patient is doing absolutely fantastic at this point and has no further requirements for inpatient Pulmonary or Critical Care opinion. As such, I will sign off. Please call with additional questions or concerns moving forward. Job ID: [id number]
[2018-09-07] MEDS: Atorvastatin Calcium 20 MG TAB PO SCH (20:36)
[2018-09-07] MEDS: Famotidine 20 MG TAB PO SCH (20:38)
[2018-09-08 05:53] LABS: Anion Gap 13 mmol/L (10-20); BUN (Urea Nitrogen) 17 mg/dL (9.8-20.1); Calc. Creatinine Clearance 51 mL/min (70-130); Carbon Dioxide 20 mmol/L (23-31); Chloride 112 mmol/L (98-107); Estimated GFR-MDRD 41; Glucose 135 mg/dL (80-115); Potassium 3.8 mmol/L (3.5-5.1); Sodium 141 mmol/L (136-145)
--- NOTE | 2018-09-08 06:10 | EKG ---
Test Reason : Blood Pressure : / mmHG Vent. Rate : 104 BPM Atrial Rate : 104 BPM P-R Int : 220 ms QRS Dur : 078 ms QT Int : 340 ms P-R-T Axes : 070 015 133 degrees QTc Int : 447 ms Sinus tachycardia with 1st degree A-V block ST elevation consider lateral injury or acute infarct ACUTE MN / STEMI Abnormal ECG When compared with ECG of 25-SEP-2014 10:10, Vent. rate has increased BY [address] elevation now present in Lateral leads T wave inversion now evident in Inferior leads T wave inversion now evident in Anterolateral leads Confirmed by CANDACE FELIX ([id number]) on 09/08/2018 6:10:05 AM Referred By: MATTI Confirmed By:CANDACE FELIX
--- NOTE | 2018-09-08 06:11 | EKG ---
Test Reason : CHEST PAIN Blood Pressure : / mmHG Vent. Rate : 085 BPM Atrial Rate : 085 BPM P-R Int : 184 ms QRS Dur : 078 ms QT Int : 444 ms P-R-T Axes : 066 010 203 degrees QTc Int : 528 ms Normal sinus rhythm Prolonged QT Abnormal ECG When compared with ECG of 03-SEP-2018 13:00, (Unconfirmed) NV interval has decreased T wave inversion more evident in Inferior leads QT has lengthened Confirmed by CANDACE FELIX ([id number]) on 09/08/2018 6:11:02 AM Referred By: MATTI Confirmed By:CANDACE FELIX
--- NOTE | 2018-09-08 06:13 | EKG ---
Test Reason : MORNING EKG Blood Pressure : / mmHG Vent. Rate : 097 BPM Atrial Rate : 097 BPM P-R Int : 000 ms QRS Dur : 078 ms QT Int : 480 ms P-R-T Axes : 049 -12 238 degrees QTc Int : 609 ms Normal sinus rhythm Prolonged QT Abnormal ECG When compared with ECG of 03-SEP-2018 22:16, (Unconfirmed) QT has lengthened Confirmed by CANDACE FELIX ([id number]) on 09/08/2018 6:13:31 AM Referred By: Marci WALSH Confirmed By:CANDACE FELIX
[2018-09-08] MEDS: Carvedilol 25 MG TAB PO SCH ×2 (08:51→16:38)
[2018-09-08] MEDS: Clopidogrel Bisulfate 75 MG TAB PO SCH (08:51)
[2018-09-08] MEDS: hydrALAZINE 25 MG TAB PO SCH (08:51)
[2018-09-08] MEDS: Lisinopril 2.5 MG TAB PO SCH (08:51)
[2018-09-08] MEDS: NIFEdipine XL 60 MG TAB PO SCH (08:52)
[2018-09-08] MEDS: Losartan 25 MG TAB PO SCH (08:52)
[2018-09-08] MEDS: Insulin Regular 300 UNITS/3 ML VIAL SC PRN (11:11)
--- NOTE | 2018-09-08 11:58 | PRG ---
DATE OF SERVICE: 09/08/2018 SUBJECTIVE: A 62-year-old female, being seen for acute kidney injury. The patient denies any nausea, vomiting, or chest pain. OBJECTIVE: CONSTITUTIONAL: The patient is awake and alert, in no acute distress. VITAL SIGNS: Afebrile, pulse 60, breathing 16, blood pressure 102/60. GENERAL APPEARANCE AND MENTAL STATUS: Fair. HEAD/NECK: Normocephalic. Atraumatic. EYES: EOMI. No deformity. EARS: Clear. No ulcers. NOSE: Intact. No lesions. MOUTH: Clear. No discharge. THROAT: Clear. No exudate. LUNGS: Clear. No crackles. CARDIAC: S1, S2. No rub. ABDOMEN: Benign. Bowel sounds positive. GENITALIA/RECTUM: Wilkinson absent. BACK/EXTREMITIES: Edema 0+. NEUROLOGICAL: Alert and motor intact. SKIN: LYMPHATICS: LABORATORY DATA: Labs show hemoglobin 12.5. Creatinine 1.5. ASSESSMENT AND RECOMMENDATIONS: 1. Acute kidney injury with chronic kidney disease, stable. 2. Hypertension, stable. 3. Anemia, stable. 4. Medications based on GFR, appropriate. No indication for dialysis. Job ID: [id number]
[2018-09-08 16:38] VITALS: BP 138/97; TEMP 98.2
--- NOTE | 2018-09-08 20:07 | DIS ---
DATE OF ADMISSION: 09/03/2018 DATE OF DISCHARGE: 09/08/2018 CONSULTANTS: 1. Dr. Oseguera, Cardiology. 2. Dr. Ceja, Nephrology. 3. Dr. Connor, Pulmonology. MEDICATIONS: Medications are reconciled at discharge. New medications; 1. Aspirin 81 mg daily. 2. Atorvastatin 20 mg p.o. at bedtime, 30 tablets per scribe, 3 refills, further refills from Dr. Oseguera. 3. Carvedilol 25 mg 1 tablet p.o. b.i.d. with meals, dispense 60, 3 refills, further refills from Dr. Oseguera. 4. Plavix 75 mg 1 p.o. daily, dispense 30, 11 refills, further refills from Dr. Oseguera. 5. Hydralazine 50 mg 1 p.o. b.i.d., dispense 60 tablets, 3 refills, further refills from Dr. Oseguera. MEDICATIONS DISCONTINUED: Carvedilol 6.25 mg, this was discontinued due to the higher dose. MEDICATIONS TO CONTINUE: 1. Toujeo 25 units each morning. 2. Losartan 100 mg daily. 3. Nifedipine 60 mg daily. 4. Omeprazole 20 mg daily p.r.n. reflux. 5. Clonidine 0.1 mg p.o. q.8 hours p.r.n. elevated blood pressures. 6. Metformin 1000 mg p.o. b.i.d. FINAL DIAGNOSES: 1. Lia-GU-hkaltlskz acute coronary syndrome, now status post 2 drug-eluting stents. 2. Kidney lesions by CT scan - Followup MRI needed of the abdomen as further explained below. 3. Chronic kidney disease stage 3. 4. Prolonged QT interval (QTc 480) SECONDARY DIAGNOSES: 1. Hypertension. 2. Dyslipidemia. 3. Diabetes mellitus. 4. Reflux. 5. Abdominal cyst with MRI needed. 6. Tobacco abuse. HISTORY OF PRESENT ILLNESS: Ms. Rangel is a 62-year-old female, who presented to the emergency room with nausea and vomiting, that started the night prior. She was found to have an elevated troponin and elevated blood pressure and was admitted for both reasons. HOSPITAL COURSE: The patient underwent a cardiac catheterization with Dr. Oseguera and 2 drug-eluting stents were placed in the first diagonal coronary artery and the mid LAD coronary artery. The patient was started on dual antiplatelet therapy, medications have been titrated for better blood pressure control, she was started on a statin. She had tolerated this well. On echocardiogram, the patient has an ejection fraction estimated at 35% to 40%, with dyskinetic motion of the apical wall in the left ventricle and akinetic motion of the mid to distal anteroseptal wall in the left ventricle. She has been optimized on medication and will be followed closely with Dr. Oseguera, her microfilm mounter. The patient was evaluated by Dr. Ceja of Nephrology and due to a creatinine that has ranged from 1.25 to 1.87. She underwent renal ultrasound, which showed left renal cyst and a questionable nonobstructing stone. She then underwent CT scan of the abdomen and pelvis, which shows mixed attenuation lesions in the kidneys, which are presumed to be complex and hemorrhagic cyst. Recommendation for an abdominal MRI or a renal mass CT protocol was recommended. There was also an isodense lesion in the upper pole of the left kidney, which will be better characterized on either study. The patient's renal function has remained stable, and she will follow up with Dr. Ceja in the outpatient setting. The patient was initially in the ICU, and was followed by Pulmonary Critical Care while here. She has overall done well and was transferred to telemetry. The patient reports overall feeling well, ambulating without difficulty, taking p.o. and tolerating her medications. She does meet criteria for discharge to home. Of note, the patient does have a prolonged QT interval on ECG - QTc 480. PHYSICAL EXAMINATION ON DAY OF DISCHARGE: VITAL SIGNS: Blood pressure 138/97, temperature 98.2, pulse 93, respirations 16, sats 98% on room air. GENERAL: Awake, alert, responsive, in no apparent distress, able to speak in full sentences. LUNGS: Clear to auscultation bilaterally. HEART: Normal S1, S2. Regular rate and rhythm. No audible murmurs. ABDOMEN: Soft. Positive bowel sounds. Nontender. Nondistended. EXTREMITIES: No pitting edema. JEFFRIES FINDINGS AND TEST RESULTS: Renal panel today; sodium 141, potassium 3.8, chloride 112, bicarbonate 20, BUN 17, creatinine 1.54, glucose 135. Blood sugars have ranged from 135 to 208. LFTs on 09/06; total bilirubin 0.3, AST 15, ALT 10, alkaline phosphatase 66, total protein 7.7, albumin 3.7. Peak troponin was 1.237. Triglycerides 96, cholesterol 88, LDL 39, HDL 30 performed on 09/03. Beta hydroxybutyrate was 0.93 on 09/03. CBC on 09/06; WBC 14.2, hemoglobin 12.5, hematocrit 38.0, platelets 225. CT scan of the abdomen and pelvis shows mixed attenuation lesions in the kidneys , which are presumed to be complex and hemorrhagic cyst. Better interrogation with abdominal MRI or renal mass protocol CT recommended. This will help to image the isodense lesion in the upper pole of the left kidney as well. Renal ultrasound; left renal cyst and questionable nonobstructing stone. Brain CT performed on 09/03 shows no acute hemorrhage or edema. Chest x-ray performed on 09/03 shows no acute process. Followup is with Dr. Oseguera, his office will contact the patient to schedule a followup appointment in 4 to 6 weeks. Follow up with the primary care provider Jo Naik for ordering of the abdominal MRI to further characterize the kidneys. Follow up with Dr. Ceja in 3 weeks. Follow up with Cardiac Rehab. DIET: Heart healthy, diabetes prudent. ACTIVITY: As tolerated. She will be working with cardiac rehab. Tobacco cessation is strongly encouraged and recommended. I reviewed with the patient and her family this hospitalization, the importance of followup, the necessity of dual antiplatelet therapy for a year to help protect the stent, tobacco cessation, activity and followup recommendations as well as return for care precautions. They demonstrate understanding. TIME SPENT: Total time coordinating discharge is 45 minutes. Job ID: [id number] MTDD
--- NOTE | 2018-09-10 17:58 | EKG ---
Test Reason : ER INDICATION Blood Pressure : / mmHG Vent. Rate : 116 BPM Atrial Rate : 116 BPM P-R Int : 206 ms QRS Dur : 084 ms QT Int : 290 ms P-R-T Axes : 055 006 126 degrees QTc Int : 403 ms Sinus tachycardia Biatrial enlargement Left ventricular hypertrophy Abnormal ECG Confirmed by OSCAR CONNER DO ([id number]), purchasing expeditor MONISHA MENG ([id number] on 09/10/2018 5:57:48 PM Referred By: Confirmed By:OSCAR CONNER DO
--- NOTE | 2018-09-10 17:58 | EKG ---
Test Reason : Blood Pressure : / mmHG Vent. Rate : 103 BPM Atrial Rate : 103 BPM P-R Int : 266 ms QRS Dur : 084 ms QT Int : 292 ms P-R-T Axes : 047 003 112 degrees QTc Int : 382 ms Sinus tachycardia with 1st degree A-V block Possible Left atrial enlargement Left ventricular hypertrophy Abnormal ECG Confirmed by OSCAR CONNER DO ([id number]), magazine editor MONISHA MENG ([id number]) on 09/10/2018 5:57:46 PM Referred By: Confirmed By:OSCAR CONNER DO
== END 2018-09-08 17:55 | disposition home or self-care (01) | DRG 247 ==
LOC: ERS 05:50 → CCU 09:34 → 2NO 09-06 14:10
PROVIDERS: ADMIT Hospitalist; ATTEND Hospitalist
PROC: 027135Z Dilation of Coronary Artery, Two Arteries with Two Drug-eluting Intraluminal Devices, Percutaneous Approach (ICD-10-PCS; principal; 2018-09-05)
PROC: 4A023N7 Measurement of Cardiac Sampling and Pressure, Left Heart, Percutaneous Approach (ICD-10-PCS; 2018-09-05)
PROC: B2111ZZ Fluoroscopy of Multiple Coronary Arteries using Low Osmolar Contrast (ICD-10-PCS; 2018-09-05)
PROC: B2151ZZ Fluoroscopy of Left Heart using Low Osmolar Contrast (ICD-10-PCS; 2018-09-05)
DX: I21.4 Non-ST elevation (NSTEMI) myocardial infarction (principal); N17.9 Acute kidney failure, unspecified; I16.1 Hypertensive emergency; E87.2 Acidosis; I12.9 Hypertensive chronic kidney disease with stage 1 through stage 4 chronic kidney disease, or unspecified chronic kidney disease; N18.3 Chronic kidney disease, stage 3 (moderate); I25.10 Atherosclerotic heart disease of native coronary artery without angina pectoris; D63.1 Anemia in chronic kidney disease; E11.9 Type 2 diabetes mellitus without complications; J44.9 Chronic obstructive pulmonary disease, unspecified; E78.5 Hyperlipidemia, unspecified; N28.9 Disorder of kidney and ureter, unspecified; F17.210 Nicotine dependence, cigarettes, uncomplicated; E86.0 Dehydration; E66.9 Obesity, unspecified; Z68.32 Body mass index [BMI] 32.0-32.9, adult; Z88.5 Allergy status to narcotic agent; Z79.84 Long term (current) use of oral hypoglycemic drugs; Z79.82 Long term (current) use of aspirin; Z79.899 Other long term (current) drug therapy
CPT/HCPCS: 36415; 36416; 70450; 71045; 74176; 76705; 76770; 80048; 80053; 80061; 82010; 82553; 83690; 84484; 85025; 85347; 85730; 92928; 93005; 93010; 93306; 93458; 93798; 96361; 96365; 96368; 96375; 99152; 99153; C1769; C1874; C1887; C9600; J0583; J1644; J1815; J1940; J2001; J2250; J2270; J2405; J2720; J3010; J7050

== ENCOUNTER 2018-09-30 09:29 | Outpatient (CLI) | payer BC | END 2018-09-30 09:30 | disposition home or self-care (01) | LOC: BICMAMMO 09:29 | PROVIDERS: ATTEND Nurse Practitioner Family | DX: Z12.31 Encounter for screening mammogram for malignant neoplasm of breast (principal) | CPT/HCPCS: 77063; 77067 ==

== ENCOUNTER 2018-10-20 15:02 | Emergency (ER) | payer BC | END 2018-10-20 16:05 | disposition home or self-care (01) | LOC: ERS 15:02 | DX: E11.9 Type 2 diabetes mellitus without complications (principal); Z76.0 Encounter for issue of repeat prescription; I10 Essential (primary) hypertension; J44.9 Chronic obstructive pulmonary disease, unspecified; F17.210 Nicotine dependence, cigarettes, uncomplicated; Z79.4 Long term (current) use of insulin | CPT/HCPCS: 99281 ==

== ENCOUNTER 2019-02-11 07:55 | Emergency (ER) | payer BC, OTHER, SELFPAY ==
--- NOTE | 2019-02-11 09:59 | RAD ---
LEFT KNEE 4 VIEW SERIES: INDICATION: Pain. FINDINGS: There is moderate joint capsular distention. Tricompartmental osteophytosis is seen. There is no fr acture or dislocation. Incidental note of vascular calcification. IMPRESSION: 1. Mild osteoarthritis. 2. Moderate joint capsular distention. 3. No acute fracture. POS: [facility]
== END 2019-02-11 09:44 | disposition home or self-care (01) ==
LOC: ERS 07:55
DX: M65.4 Radial styloid tenosynovitis [de Quervain] (principal)

== ENCOUNTER 2019-11-01 12:28 | Outpatient (CLI) | payer MEDICARE, BC ==
--- NOTE | 2019-11-01 14:19 | ULT ---
EXAM: BILATERAL RENAL ULTRASOUND COMPLETE: 11/01/19 HISTORY: Microhematuria. COMPARISON: 09/04/18. FINDINGS: Right kidney measures 8.7 x 4.3 x 4.4 cm. Left kidney measures 9.2 x 4.5 x 5.1 cm. There is noted to be bilateral renal cysts up to 1.7 x 1.7 x 1.6 cm on the left side. No renal hydron ephrosis. No perinephric process. Urinary bladder was not adequately seen, presumably from an empty b ladder. IMPRESSION: Bilateral renal cyst. No renal hydronephrosis or other acute process. POS: [facility]
== END 2019-11-01 12:29 | disposition home or self-care (01) ==
LOC: BICULT 12:28
PROVIDERS: ATTEND Urology
DX: R31.29 Other microscopic hematuria (principal); N28.1 Cyst of kidney, acquired
CPT/HCPCS: 76770

== ENCOUNTER 2021-06-13 17:58 | Observation (INO) | payer MEDICARE ==
[2021-06-13 19:08] LABS: #Eosinphils 0.1 thou/uL (0.0-0.7); #Lymphocytes 1.4 thou/uL (1.20-3.40); #Monocytes 0.5 thou/uL (0.11-0.59); #Neutrophils 7.3 thou/uL (1.40-6.50); %Basophils 0.1 % (0.0-1.0); %Eosinophils 0.7 % (0.0-10.0); %Lymphocytes 14.9 % (21.0-51.0); %Monocytes 4.9 % (0.0-10.0); %Neutrophils 79.3 % (42.0-75.0); Hemoglobin 12.7 g/dL (12.0-16.0); Mean Corpuscular HGB CONC 33.1 g/dL (32.0-36.0); Mean Corpuscular Volume 96.8 fL (78.0-98.0); Mean Platelet Volume 10.9 fL (7.4-10.4); Platelet Count 200 thou/uL (130-400); RBC Distribution Width 12.4 % (11.5-14.5); Red Blood Cell (RBC) Count 3.95 mill/uL (4.20-5.40); White Blood Cell (WBC) Count 9.2 thou/uL (4.8-10.8)
[2021-06-13] MEDS ORDERED: Insulin Regular 300 UNITS/3 ML VIAL ONE (19:08)
[2021-06-13 19:36] LABS: ALT (SGPT) 21 U/L (8-55); AST (SGOT) 20 U/L (5-34); Albumin 3.8 g/dL (3.4-4.8); Alkaline Phosphatase 162 U/L (40-110); Anion Gap 15 mmol/L (10-20); BUN (Urea Nitrogen) 24 mg/dL (9.8-20.1); Bilirubin, Total 0.2 mg/dL (0.2-1.2); Calc. Creatinine Clearance 0 mL/min (70-130); Calcium 9.3 mg/dL (7.8-10.44); Carbon Dioxide 19 mmol/L (23-31); Chloride 101 mmol/L (98-107); Globulin 3.8 g/dL (2.4-3.5); Glucose 576 mg/dL (80-115); Potassium 4.9 mmol/L (3.5-5.1); Protein, Total 7.6 g/dL (5.8-8.1); Sodium 130 mmol/L (136-145)
[2021-06-13 22:39] LABS: Bilirubin Negative (Negative); Blood, Urine Negative (Negative); Clarity Clear (Clear); Glucose, Urine (Dipstick) Greater than 1000 mg/dL (Negative); Ketone, Urine Negative (Negative); Leukocyte 75 Leu/uL (Negative); Nitrite Negative (Negative); Protein, Urine (Dipstick) Negative (Neg-Trace); RBC/HPF 0-3 HPF (0-3); Specific Gravity, Urine 1.019 (1.002-1.036); Squamous Epithelial 0-3 HPF (0-3); Urobilinogen Normal mg/dL (Less than 2); WBC/HPF 0-3 HPF (0-3)
[2021-06-13 23:00] LABS: Bacteria/HPF 1+ HPF (None Seen)
[2021-06-13 23:08] LABS: ALT (SGPT) 17 U/L (8-55); AST (SGOT) 12 U/L (5-34); Albumin 3.4 g/dL (3.4-4.8); Alkaline Phosphatase 137 U/L (40-110); Anion Gap 13 mmol/L (10-20); BUN (Urea Nitrogen) 21 mg/dL (9.8-20.1); Bilirubin, Total 0.2 mg/dL (0.2-1.2); Calc. Creatinine Clearance 0 mL/min (70-130); Calcium 8.5 mg/dL (7.8-10.44); Carbon Dioxide 20 mmol/L (23-31); Chloride 108 mmol/L (98-107); Glucose 349 mg/dL (80-115); Potassium 3.7 mmol/L (3.5-5.1); Protein, Total 6.4 g/dL (5.8-8.1); Sodium 137 mmol/L (136-145)
[2021-06-14] MEDS ORDERED: Ondansetron ODT 4 MG TAB SL PRN (01:00)
[2021-06-14] MEDS ORDERED: Ondansetron PF 4 MG/2 ML Vial IVP PRN (01:00)
[2021-06-14] MEDS: Sodium Chloride 0.9% 1,000 ML IV SCH ×4 (01:05→20:24)
[2021-06-14] MEDS ORDERED: Senokot S 8.6-50 MG TAB PO PRN (02:54)
[2021-06-14] MEDS ORDERED: Dextrose 5% in Water 1,000 ML IV PRN (03:04)
[2021-06-14] MEDS ORDERED: Dextrose 50% Abboject 50 ML SYRINGE SLOW IVP PRN (03:04)
[2021-06-14] MEDS ORDERED: HumaLOG 300 UNITS/3 ML VIAL SC PRN (03:04)
[2021-06-14 03:26] VITALS: BMI 30.9
[2021-06-14] MEDS ORDERED: cloNIDine 0.1 MG TAB PO PRN (03:26)
[2021-06-14 04:55] LABS: #Eosinphils 0.1 thou/uL (0.0-0.7); #Lymphocytes 1.8 thou/uL (1.20-3.40); #Monocytes 0.6 thou/uL (0.11-0.59); #Neutrophils 7.3 thou/uL (1.40-6.50); %Basophils 0.1 % (0.0-1.0); %Eosinophils 0.9 % (0.0-10.0); %Lymphocytes 18.5 % (21.0-51.0); %Monocytes 6.1 % (0.0-10.0); %Neutrophils 74.3 % (42.0-75.0); Hemoglobin 10.6 g/dL (12.0-16.0); Mean Corpuscular HGB CONC 33.2 g/dL (32.0-36.0); Mean Corpuscular Hemoglobin 32.3 pg (27.0-31.0); Mean Corpuscular Volume 97.4 fL (78.0-98.0); Mean Platelet Volume 10.8 fL (7.4-10.4); Platelet Count 157 thou/uL (130-400); RBC Distribution Width 12.3 % (11.5-14.5); Red Blood Cell (RBC) Count 3.29 mill/uL (4.20-5.40); White Blood Cell (WBC) Count 9.8 thou/uL (4.8-10.8)
[2021-06-14 05:14] LABS: Hemoglobin A1c 13.4 % (4.0-6.0)
[2021-06-14 05:19] LABS: ALT (SGPT) 14 U/L (8-55); AST (SGOT) 13 U/L (5-34); Albumin 3.1 g/dL (3.4-4.8); Alkaline Phosphatase 135 U/L (40-110); Anion Gap 11 mmol/L (10-20); BUN (Urea Nitrogen) 20 mg/dL (9.8-20.1); Bilirubin, Total 0.2 mg/dL (0.2-1.2); Calc. Creatinine Clearance 41 mL/min (70-130); Calcium 8.2 mg/dL (7.8-10.44); Carbon Dioxide 19 mmol/L (23-31); Cardiac Risk 3.2 (Less than 4.5); Chloride 108 mmol/L (98-107); Cholesterol 86 mg/dl (< 200 Desired); Globulin 2.8 g/dL (2.4-3.5); Glucose 467 mg/dL (80-115); HDL Cholesterol 27 mg/dL (>60 Neg Risk); LDL Cholesterol, Calculated 33 mg/dL; Potassium 4.1 mmol/L (3.5-5.1); Protein, Total 5.9 g/dL (5.8-8.1); Sodium 134 mmol/L (136-145); Triglycerides 131 mg/dL (Less than 150)
[2021-06-14 05:27] LABS: Troponin I Less than 0.010 ng/mL (< 0.028)
[2021-06-14] MEDS: HumaLOG 300 UNITS/3 ML VIAL SC PRN ×2 (05:40→16:25)
[2021-06-14] MEDS ORDERED: Aspirin Chewable 81 MG TAB PO SCH (09:00)
[2021-06-14] MEDS ORDERED: FLU VACC QS2021-22(65YR UP)/PF 240 MCG/0.7 ML SYRINGE IM ONE (09:00)
[2021-06-14] MEDS: hydrALAZINE 25 MG TAB PO SCH ×2 (09:28→20:24)
[2021-06-14] MEDS: Famotidine/PF 20 mg/2ml Vial SLOW IVP SCH (09:29)
[2021-06-14] MEDS: NIFEdipine XL 60 MG TAB PO SCH (09:29)
[2021-06-14] MEDS: Carvedilol 25 MG TAB PO SCH ×2 (09:29→16:32)
[2021-06-14] MEDS: Heparin 5,000 UNITS/ML VIAL SC SCH ×3 (09:31→20:24)
[2021-06-14] MEDS: Acetaminophen 325 MG TAB PO PRN ×2 (11:56→20:25)
[2021-06-14 18:42] LABS: SARS-CoV-2 PCR by NAA Not Detected (NotDetected)
[2021-06-14] MEDS ORDERED: Atorvastatin Calcium 20 MG TAB PO SCH (21:00)
[2021-06-14] MEDS ORDERED: Lantus 1000 UNITS/10 ML VIAL SC SCH (21:00)
[2021-06-15] MEDS: Acetaminophen 325 MG TAB PO PRN (04:23)
[2021-06-15 05:31] LABS: Platelet Count 174 thou/uL (130-400)
[2021-06-15 05:52] LABS: Anion Gap 10 mmol/L (10-20); BUN (Urea Nitrogen) 13 mg/dL (9.8-20.1); Calc. Creatinine Clearance 49 mL/min (70-130); Calcium 8.3 mg/dL (7.8-10.44); Carbon Dioxide 23 mmol/L (23-31); Chloride 110 mmol/L (98-107); Glucose 234 mg/dL (80-115); Potassium 3.8 mmol/L (3.5-5.1); Sodium 139 mmol/L (136-145)
[2021-06-15] MEDS: HumaLOG 300 UNITS/3 ML VIAL SC PRN ×2 (06:33→11:08)
[2021-06-15] MEDS: Carvedilol 25 MG TAB PO SCH (08:39)
[2021-06-15] MEDS: hydrALAZINE 25 MG TAB PO SCH (08:39)
[2021-06-15] MEDS: Famotidine/PF 20 mg/2ml Vial SLOW IVP SCH (08:39)
[2021-06-15] MEDS: Heparin 5,000 UNITS/ML VIAL SC SCH (08:39)
[2021-06-15] MEDS: NIFEdipine XL 60 MG TAB PO SCH (08:41)
[2021-06-15] MEDS ORDERED: Aspirin Chewable 81 MG TAB PO SCH (09:00)
[2021-06-15] MEDS ORDERED: Lantus 1000 UNITS/10 ML VIAL SC SCH (09:00)
[2021-06-15] MEDS: Sodium Chloride 0.9% 1,000 ML IV SCH (11:03)
[2021-06-15 12:04] VITALS: BP 178/85; TEMP 97.9
== END 2021-06-15 14:00 | disposition home or self-care (01) ==
LOC: ERS 17:58 → ONC 06-14 00:05
PROVIDERS: ADMIT Student in an Organized Health Care Education/Training Program; ATTEND Family Medicine
DX: E11.65 Type 2 diabetes mellitus with hyperglycemia (principal); E87.1 Hypo-osmolality and hyponatremia; N17.9 Acute kidney failure, unspecified; I12.9 Hypertensive chronic kidney disease with stage 1 through stage 4 chronic kidney disease, or unspecified chronic kidney disease; E11.22 Type 2 diabetes mellitus with diabetic chronic kidney disease; N18.30 Chronic kidney disease, stage 3 unspecified; I25.10 Atherosclerotic heart disease of native coronary artery without angina pectoris; Z20.822 Contact with and (suspected) exposure to COVID-19; Z88.5 Allergy status to narcotic agent; I25.2 Old myocardial infarction; Z79.4 Long term (current) use of insulin; Z79.84 Long term (current) use of oral hypoglycemic drugs; Z79.82 Long term (current) use of aspirin; Z79.02 Long term (current) use of antithrombotics/antiplatelets; Z79.899 Other long term (current) drug therapy; Z87.891 Personal history of nicotine dependence
CPT/HCPCS: 70450; 70551; 71046; 80048; 80053 ×2; 80061; 82010; 82962 ×3; 83036; 84484; 85014; 85018; 85025; 85049; 90732; 93005; 93306; 93880; 96372 ×2; 96374; 96376; 97139 ×4; 99285; G0009; G0378 ×3; U0003; U0005; 36415; 36416; 81003; 81015; 84443; 90471; J1644; J1815; J7050; S0028

== ENCOUNTER 2022-05-14 09:47 | Outpatient (CLI) | payer MEDICARE | END 2022-05-14 09:48 | disposition home or self-care (01) | LOC: BICMAMMO 09:47 | PROVIDERS: ATTEND Family Medicine | DX: Z12.31 Encounter for screening mammogram for malignant neoplasm of breast (principal) | CPT/HCPCS: 77063; 77067 ==

== ENCOUNTER 2023-07-15 10:29 | Outpatient (CLI) | payer MEDICARE | END 2023-07-15 10:30 | disposition home or self-care (01) | LOC: BICULT 10:29 | PROVIDERS: ATTEND Internal Medicine Nephrology | DX: N18.9 Chronic kidney disease, unspecified (principal); N28.1 Cyst of kidney, acquired | CPT/HCPCS: 76770 ==

== ENCOUNTER 2024-06-09 11:50 | Outpatient (CLI) | payer MEDICARE, BC | END 2024-06-09 11:51 | disposition home or self-care (01) | LOC: BICMAMMO 11:50 | PROVIDERS: ATTEND Family Medicine | DX: Z12.31 Encounter for screening mammogram for malignant neoplasm of breast (principal) | CPT/HCPCS: 77067 ==

== ENCOUNTER 2024-07-04 10:43 | Outpatient (CLI) | payer MEDICARE, BC | END 2024-07-04 10:44 | disposition home or self-care (01) | LOC: BICCT 10:43 | PROVIDERS: ATTEND Family Medicine | DX: Z12.2 Encounter for screening for malignant neoplasm of respiratory organs (principal); Z87.891 Personal history of nicotine dependence; I31.39 Other pericardial effusion (noninflammatory) | CPT/HCPCS: 71271 ==

== ENCOUNTER 2024-09-14 14:03 | Outpatient (CLI) | payer BC | END 2024-09-14 14:04 | disposition home or self-care (01) | LOC: BICRAD 14:03 | PROVIDERS: ATTEND Family Medicine | DX: M25.512 Pain in left shoulder (principal); M19.012 Primary osteoarthritis, left shoulder ==

== ENCOUNTER 2025-08-17 15:41 | Emergency (ER) | payer BC, MEDICARE ==
[2025-08-17] MEDS ORDERED: HYDROcodone/Acetaminophen 5/325 mg Tablet ONE (16:32)
[2025-08-17 17:20] LABS: #Basophils 0.05 10x3/uL (0.0-0.2); #Eosinophils 0.24 10x3/uL (0.0-0.7); #Monocytes 0.60 10x3/uL (0.11-0.59); #Neutrophils 6.15 10x3/uL (1.40-6.50); %Basophils 0.5 % (0.0-1.0); %Eosinophils 2.6 % (0.0-10.0); %Lymphocytes 23.7 % (21.0-51.0); %Monocytes 6.5 % (0.0-10.0); %Neutrophils 66.3 % (42.0-75.0); Hematocrit 43.1 % (36.0-47.0); Hemoglobin 13.4 g/dL (12.0-16.0); Mean Corpuscular Hemoglobin 30.5 pg (27.0-31.0); Mean Corpuscular Volume 98.2 fL (78.0-98.0); Platelet Count 186 10x3/uL (130-400); Red Blood Cell (RBC) Count 4.39 mill/uL (4.20-5.40); White Blood Cell (WBC) Count 9.28 10x3/uL (4.8-10.8)
[2025-08-17 17:33] LABS: ALT (SGPT) 19 U/L (Less than 34); AST (SGOT) 19 U/L (11-34); Albumin 3.6 g/dL (3.1-4.5); Alkaline Phosphatase 120 U/L (40-110); Anion Gap 15 mmol/L (10-20); BUN (Urea Nitrogen) 26 mg/dL (9.8-20.1); Bilirubin, Total 0.1 mg/dL (0.3-1.2); CRP, High Sensitivity at Bryan 5.42 mg/dL (< or = 0.5); Calc. Creatinine Clearance 0 mL/min (70-130); Calcium 9.4 mg/dL (7.8-10.44); Carbon Dioxide 20 mmol/L (23-31); Chloride 106 mmol/L (98-107); Globulin 4.0 g/dL (2.4-3.5); Glucose 254 mg/dL (80-115); Potassium 4.1 mmol/L (3.5-5.1); Sodium 137 mmol/L (136-145); Uric Acid 8.0 mg/dL (2.5-6.2)
== END 2025-08-17 20:11 | disposition home or self-care (01) ==
LOC: ERS 15:41
DX: M10.9 Gout, unspecified (principal); E11.65 Type 2 diabetes mellitus with hyperglycemia; N17.9 Acute kidney failure, unspecified; E11.22 Type 2 diabetes mellitus with diabetic chronic kidney disease; N18.9 Chronic kidney disease, unspecified; I12.9 Hypertensive chronic kidney disease with stage 1 through stage 4 chronic kidney disease, or unspecified chronic kidney disease; J44.9 Chronic obstructive pulmonary disease, unspecified; Z87.891 Personal history of nicotine dependence
CPT/HCPCS: 80053; 84550; 85025; 86141; 96360; 96361